=== PATIENT | female | born 1980 | race Caucasian/White ===

== ENCOUNTER 2018-02-11 20:05 | Emergency (ER) | payer MEDICAID ==
[2018-02-11 20:29] VITALS: BP 125/77; PULSE 74; RESP 16; TEMP 98.5; O2SAT 100
--- NOTE | 2018-02-11 22:41 | ED PDOC ---
HPI: Back Time Seen by Provider: 02/11/18 20:56 Chief Complaint (Nursing): Back Pain Chief Complaint (Provider): Tail bone pain - No injury History Per: Patient History/Exam Limitations: no limitations Onset/Duration Of Symptoms: Days Current Symptoms Are (Timing): Still Present Quality Of Discomfort: Dull Additional Complaint(s): 3 days of tail bone pain. Pt reports history of low back pain presents with tail bone pain. Pt states she was doing some spring cleaning yesterday. No numbness/tingling. No bladder or bowel incontinence. No similar in the past. no trauma. Pt does not want anything for pain in ER. Pt states she Past Medical History Reviewed: Historical Data, Nursing Documentation, Vital Signs Vital Signs: Last Vital Signs Temp 98.5 F 02/11/18 20:28 Pulse 74 02/11/18 20:28 Resp 16 02/11/18 20:28 BP 125/77 02/11/18 20:28 Pulse Ox 100 02/11/18 20:28 - Medical History PMH: No Chronic Diseases - Surgical History Surgical History: No Surg Hx - Family History Family History: States: No Known Family Hx - Living Arrangements Living Arrangements: With Family - Home Medications Home Medications: Ambulatory Orders Medication Instructions Recorded Naproxen [Naprosyn] 500 mg PO BID #20 tab 01/22/15 diaZEpam [Valium] 5 mg PO Q6 PRN #15 tab 01/22/15 Loratadine [Claritin] 10 mg PO DAILY PRN #7 tab 01/09/16 - Allergies Allergies/Adverse Reactions: Allergies Allergy/AdvReac Type Severity Reaction Status Date / Time No Known Allergies Allergy Verified 01/22/15 02:05 Physical Exam - Reviewed Nursing Documentation Reviewed: Yes Vital Signs Reviewed: Yes - Physical Exam Appears: Positive for: Well, Non-toxic, No Acute Distress Head Exam: Positive for: ATRAUMATIC, NORMAL INSPECTION, NORMOCEPHALIC Skin: Positive for: Normal Color (No ecchymosis, erythema, abscess formation, etc in the gluteral region), Warm Eye Exam: Positive for: Normal appearance ENT: Positive for: Normal ENT Inspection Neck: Positive for: Normal, Painless ROM Respiratory: Negative for: Accessory Muscle Use, Respiratory Distress Back: Positive for: Normal Inspection. Negative for: Vertebral Tenderness Extremity: Positive for: Normal ROM Neurologic/Psych: Positive for: Alert, Oriented - ECG O2 Sat by Pulse Oximetry: 100 Medical Decision Making Medical Decision Making: x-ray normal. Disposition - Clinical Impression Clinical Impression: Tail bone pain - Patient ED Disposition Is Patient to be Admitted: No Counseled Patient/Family Regarding: Diagnosis, Need For Followup, Rx Given - Disposition Disposition: Routine/Home Disposition Time: 22:38 Condition: GOOD Instructions: Coccyx Injury (DC)
--- NOTE | 2018-02-12 08:10 | RAD ---
PROCEDURE: Radiographs of the Sacrum and Coccyx HISTORY: pain, no trauma, history of back pain COMPARISON: None available. TECHNIQUE: Frontal and lateral views of the sacrum and coccyx FINDINGS: BONES: Sacrum and coccyx unremarkable. No fracture or focal lesion. Overlying distal rectosigmoid bowel obscures the mid to lower sacrum. SACROILIAC JOINTS: Unremarkable. OTHER FINDINGS: Vascular calcifications are suggested at the inferior pelvis soft tissues. IMPRESSION: No definitive fracture or destructive bony lesion seen related to the sacrum and coccyx although bowel does obscure the mid to lower sacrum somewhat.
== END 2018-02-12 00:38 | disposition home or self-care (01) ==
LOC: SUPCPDRO 20:05 → H.ER 20:05
DX: M53.3 Sacrococcygeal disorders, not elsewhere classified (principal)

== ENCOUNTER 2018-05-10 21:10 | Emergency (ER) | payer MEDICAID ==
[2018-05-10 21:20] VITALS: BP 122/78; PULSE 89; RESP 18; TEMP 98.5; O2SAT 99
--- NOTE | 2018-05-10 21:49 | ED PDOC ---
HPI: Influenza Time Seen by Provider: 05/10/18 21:25 Chief Complaint: Cough, Cold, Congestion History Per: Patient Additional complaint(s):: Pt. states since yesterday she's had a persistent cough which worsened today. States she used her daughter's nebulizer with good relief of chest tightness but she also developed chills prompting ED visit. Denies hemoptysis, sputum production, fever, chest pain, sick contacts, recent travel. Past Medical History Reviewed: Historical Data, Nursing Documentation, Vital Signs Vital Signs: Last Vital Signs Temp 98.5 F 05/10/18 21:19 Pulse 89 05/10/18 21:19 Resp 18 05/10/18 21:19 BP 122/78 05/10/18 21:19 Pulse Ox 99 05/10/18 21:19 - Family History Family History: States: No Known Family Hx - Home Medications Home Medications: Ambulatory Orders Medication Instructions Recorded Naproxen [Naprosyn] 500 mg PO BID #20 tab 01/22/15 diaZEpam [Valium] 5 mg PO Q6 PRN #15 tab 01/22/15 Loratadine [Claritin] 10 mg PO DAILY PRN #7 tab 01/09/16 Albuterol HFA [Ventolin HFA 90 2 puff IH [id number] PRN #1 each 05/10/18 mcg/actuation (8 g)] Promethazine DM [Phenergan DM 5 - 10 ml PO Q8 PRN #120 ml 05/10/18 Syrup] - Allergies Allergies/Adverse Reactions: Allergies Allergy/AdvReac Type Severity Reaction Status Date / Time No Known Allergies Allergy Verified 05/10/18 21:18 Review of Systems ROS Statement: Except As Marked, All Systems Reviewed And Found Negative Respiratory: Positive for: Cough Physical Exam - Physical Exam Appears: Positive for: Well, Non-toxic, No Acute Distress Skin: Positive for: Normal Color, Warm. Negative for: Rash Eye Exam: Positive for: Normal appearance ENT: Positive for: TM Is/Are (non-erythematous, non-bulging b/l), Pharyngeal Erythema. Negative for: Tonsillar Exudate, Tonsillar Swelling Neck: Positive for: Normal, Painless ROM Cardiovascular/Chest: Positive for: Regular Rate, Rhythm. Negative for: Tachycardia Respiratory: Positive for: CNT, Normal Breath Sounds Neurologic/Psych: Positive for: Alert, Oriented. Negative for: Aphasia, Facial Droop - ECG O2 Sat by Pulse Oximetry: 99 - Progress ED Course And Treament: 2250 On re-evaluation, pt. in no distress. Reports no chest pain or SOB. Disposition - Clinical Impression Clinical Impression: Upper respiratory infection - Patient ED Disposition Is Patient to be Admitted: No - Disposition Disposition: Routine/Home Disposition Time: 22:56 Condition: STABLE Additional Instructions: Follow up with PMD for further evaluation. Return to ED immediately if symptoms worsen. Prescriptions: Albuterol HFA [Ventolin HFA 90 mcg/actuation (8 g)] 2 puff IH [id number] PRN #1 each PRN Reason: Cough Promethazine DM [Phenergan DM Syrup] 5 - 10 ml PO Q8 PRN #120 ml PRN Reason: Cough Instructions: Viral Upper Respiratory Infection, Adult (DC) Forms: [employer] [place] ([place])
--- NOTE | 2018-05-11 09:25 | RAD ---
Date of service: 05/10/2018 HISTORY: cough COMPARISON: Comparison chest 10/14/2011 TECHNIQUE: Chest PA and lateral FINDINGS: LUNGS: No active pulmonary disease. PLEURA: No significant pleural effusion identified. No pneumothorax apparent. CARDIOVASCULAR: Normal. OSSEOUS STRUCTURES: No significant abnormalities. VISUALIZED UPPER ABDOMEN: Normal. OTHER FINDINGS: None. IMPRESSION: No active disease.
== END 2018-05-10 23:03 | disposition home or self-care (01) ==
LOC: H.ER 21:10
DX: J06.9 Acute upper respiratory infection, unspecified (principal)